=== PATIENT | female | born 1965 | race Caucasian/White ===

== ENCOUNTER → 2017-07-13 | Outpatient (CLI) | payer BC ==
[~2017-07-13] MED LIST: EFFEXOR-XR150 MG PO; FLEXERIL 1010 MG/TAB PO; NORCO 325 MG-51 TAB PO; REGLAN 10MG10 MG/TAB PO; TREXIMET; ZOFRAN 4MG T4 MG/TAB
== END ==
LOC: MC.RAD 15:43
DX: Z12.31 Encounter for screening mammogram for malignant neoplasm of breast (principal)

== ENCOUNTER 2018-03-16 23:51 | Emergency (ER) | payer BC ==
[~2018-03-16] VITALS: Ht 160 cm; Wt 62.7 kg
[2018-03-16 23:57] VITALS: TEMP 98
[2018-03-17 00:56] LABS: COLLECTION METHOD CLEAN CATCH
[2018-03-17 00:59] LABS: BASO # 0.1 (0.0-0.2); BASO % 0.9 % (0.0-2.0); EOS # 0.2 (0.0-0.7); EOS % 3.4 % (0-4.0); HEMATOCRIT 39.8 % (37.0-47.0); HEMOGLOBIN 14.3 g/dl (12.5-16.0); LYMPH # 1.8 (1.2-3.4); LYMPH % 31.1 % (20.0-51.0); MEAN CELL VOLUME 85 fl (80.0-100.0); MEAN CORPUSCULAR HEMOGLOBIN 31 pg (27.0-31.0); MEAN CORPUSCULAR HGB CONC 36 g/dl (33.0-37.0); MEAN PLATELET VOLUME 10.3 fl (7.4-10.4); MONO # 0.6 (0.1-0.6); MONO % 11.4 % (1.7-9.3); PLATELET COUNT 224 K/mm3 (130-400); RED BLOOD COUNT 4.69 M/mm3 (4.10-5.30); REDCELL DISTRIBUTION WIDTH-CV 11.9 % (11.5-14.5)
[2018-03-17 01:03] LABS: PH 7 (5-8); SQUAMOUS EPITHELIAL 0-2 /hpf; URINE APPEARANCE Cloudy; URINE BACTERIA Rare /hpf; URINE BILIRUBIN Negative (NEGATIVE); URINE BLOOD Negative (NEGATIVE); URINE GLUCOSE Negative (NEGATIVE); URINE KETONE Negative (NEGATIVE); URINE LEUKOCYTE ESTERASE Negative (NEGATIVE); URINE NITRATE Negative (NEGATIVE); URINE PROTEIN(semi-quant) Negative (NEGATIVE); URINE RBC 0-2 /hpf; URINE UROBILINOGEN Negative (NEGATIVE)
[2018-03-17 01:04] LABS: URINE COLOR Yellow
[2018-03-17] MEDS ORDERED: LEXAPRO20 MG PO (01:04)
[2018-03-17 01:11] LABS: ALANINE AMINOTRANSFERASE 32 U/L (9-52); ALBUMIN 4.2 gm/dL (3.5-5.0); ALKALINE PHOSPHATASE 71 U/L (50-136); ANION GAP 8 mmol/L (7-16); AST,SGOT 29 U/L (15-37); BILIRUBIN,TOTAL 0.3 mg/dL (0.0-1.0); BLOOD UREA NITROGEN 15 mg/dL (7-17); C-REACTIVE PROTEIN < 0.5 mg/dL (0.0-0.9); CALCIUM 9.8 mg/dL (8.4-10.2); CARBON DIOXIDE 29 mmol/L (22-30); CHLORIDE 102 mmol/L (98-107); CREATININE, serum 0.72 mg/dL (0.52-1.25); GLUCOSE 99 mg/dL (74-106); POTASSIUM 3.9 mmol/L (3.4-5.0); SODIUM 138 mmol/L (137-145); TOTAL PROTEIN 7.1 gm/dL (6.4-8.2)
[2018-03-17] MEDS ORDERED: CIPRO 500MG TA500 MG PO (03:29)
[2018-03-17] MEDS ORDERED: ZOFRAN 4MG T4 MG/TAB PO (03:29)
[2018-03-17] MEDS ORDERED: FLAGYL500 MG PO (03:29)
[2018-03-17] MEDS ORDERED: NORCO 325 MG-51 TAB PO (03:29)
[2018-03-17 03:46] VITALS: BP 99/61; PULSE 69
== END 2018-03-17 03:51 | disposition home or self-care (01) ==
LOC: COL.ER 23:51
PROVIDERS: Nurse Practitioner
DX: K52.9 Noninfective gastroenteritis and colitis, unspecified (principal); R11.0 Nausea; G43.909 Migraine, unspecified, not intractable, without status migrainosus; Z90.710 Acquired absence of both cervix and uterus; Z98.890 Other specified postprocedural states; Z90.49 Acquired absence of other specified parts of digestive tract
CPT/HCPCS: J1170; J2405; J7030; Q9967

== ENCOUNTER → 2019-05-18 | Outpatient (CLI) | payer BC ==
[~2019-05-18] MED LIST changes: +CIPRO 500MG TA500 MG PO; +FLAGYL500 MG PO; +LEXAPRO20 MG PO; +ZOFRAN 4MG T4 MG/TAB PO
== END ==
LOC: MC.RAD 11:06
DX: Z12.31 Encounter for screening mammogram for malignant neoplasm of breast (principal)

== ENCOUNTER 2019-08-22 10:34 | Day surgery (SDC) | payer BC ==
[~2019-08-22] VITALS: Ht 160 cm; Wt 60.9 kg
[2019-08-22 11:33] VITALS: BP 125/73; PULSE 66; TEMP 97.9
[2019-08-22] MEDS ORDERED: ZOFRAN 4MG T4 MG/TAB PO (11:36)
[2019-08-22] MEDS ORDERED: BRINTELLIX20 PO (11:37)
--- NOTE | 2019-08-22 11:38 | NUR ---
TO RM AT 1110- CALL LIGHT IN REACH AT BEDSIDE.
[2019-08-22] MEDS ORDERED: CANASA 1000MG1000 MG RC (13:34)
[2019-08-22] MEDS ORDERED: LIALDA 1.2 GM1.2 GM PO (13:35)
[2019-08-22] MEDS ORDERED: PREDNISONE10 MG PO (13:35)
[2019-08-22 13:40] VITALS: BP 111/63; PULSE 65; TEMP 98.4
--- NOTE | 2019-08-22 13:40 | NUR ---
Patient brought back to [facility] via cart. Ambulated to chair without difficulty. Alert and oriented. at bedside. Denies nausea or pain, just slightly dizzy. Crackers and water provided. Vitals stable, will continue to monitor.
[2019-08-22 13:55] VITALS: BP 113/71; PULSE 63
--- NOTE | 2019-08-22 13:55 | NUR ---
Dr. Colmenares at bedside to explain results with patient and family. Per MD obtain stool kit to send home with PT. Recieved from lab. Expained procedure of collecting stool. Pt states she is feeling well. Tolerating food and drink without difficulty. Will continue to monitor.
[2019-08-22 14:10] VITALS: BP 107/64; PULSE 62
--- NOTE | 2019-08-22 14:10 | NUR ---
Patient states she is feeling well and ready to go home. Vital signs stable.
--- NOTE | 2019-08-22 14:35 | NUR ---
Discharge instructions reviewed with patient and family. New perscriptions reviewed. All questions answered. Patient wheeled down to lobby. To be driven home by .
== END 2019-08-22 14:35 | disposition home or self-care (01) ==
LOC: SDCO 10:34
DX: K51.50 Left sided colitis without complications (principal)
CPT/HCPCS: J2704; J7120

== ENCOUNTER → 2020-04-05 | Outpatient (CLI) | payer BC ==
[~2020-04-05] MED LIST changes: +BRINTELLIX20 PO; +CANASA 1000MG1000 MG RC; +LIALDA 1.2 GM1.2 GM PO; +PREDNISONE10 MG PO
== END ==
LOC: MC.RAD 12:59
DX: Z12.31 Encounter for screening mammogram for malignant neoplasm of breast (principal)

== ENCOUNTER → 2021-02-07 | Outpatient (CLI) | payer BC | LOC: COL.RAD 07:24 | DX: K51.919 Ulcerative colitis, unspecified with unspecified complications (principal); Z90.49 Acquired absence of other specified parts of digestive tract | CPT/HCPCS: Q9967 ==

== ENCOUNTER → 2021-05-15 | Outpatient (CLI) | payer BC | LOC: COL.RAD 11:33 | DX: E04.2 Nontoxic multinodular goiter (principal) ==

== ENCOUNTER → 2021-06-02 | Outpatient (CLI) | payer BC | LOC: COL.RAD 12:00 | DX: E05.00 Thyrotoxicosis with diffuse goiter without thyrotoxic crisis or storm (principal); E04.2 Nontoxic multinodular goiter | CPT/HCPCS: A9516 ==

== ENCOUNTER → 2021-07-04 | Outpatient (CLI) | payer BC | LOC: MC.RAD 10:16 | DX: Z12.31 Encounter for screening mammogram for malignant neoplasm of breast (principal) ==

== ENCOUNTER 2021-09-28 10:05 | Emergency (ER) | payer BC ==
[~2021-09-28] VITALS: Ht 160 cm; Wt 61.4 kg
[2021-09-28 10:30] VITALS: TEMP 98.4
[2021-09-28 11:10] LABS: COLLECTION METHOD CLEAN CATCH
[2021-09-28 11:13] LABS: BASO % 0.5 % (0.0-2.0); EOS # 0.2 K/mm3 (0.0-0.7); EOS % 3.4 % (0.0-4.0); GRAN # 2.5 K/mm3 (1.4-6.5); GRAN % 44.8 % (42.2-75.2); HEMATOCRIT 40.8 % (37.0-47.0); HEMOGLOBIN 14.1 g/dl (12.5-16.0); LYMPH # 1.9 K/mm3 (1.2-3.4); LYMPH % 34.8 % (20.0-51.0); MEAN CELL VOLUME 88 fl (80.0-100.0); MEAN CORPUSCULAR HEMOGLOBIN 30 pg (27-31); MEAN CORPUSCULAR HGB CONC 35 g/dl (33.0-37.0); MEAN PLATELET VOLUME 9.7 fl (7.4-10.4); MONO # 0.9 K/mm3 (0.1-0.6); MONO % 16.3 % (1.7-9.3); PLATELET COUNT 249 K/mm3 (130-400); RED BLOOD COUNT 4.64 M/mm3 (4.10-5.30); REDCELL DISTRIBUTION WIDTH-CV 11.9 % (11.5-14.5)
[2021-09-28 11:19] LABS: PH 7 (5-8); SQUAMOUS EPITHELIAL None Seen /hpf (0-10); URINE APPEARANCE Clear (CLEAR/HAZY); URINE BACTERIA None Seen /hpf (NONE SEEN); URINE BILIRUBIN Negative (NEGATIVE); URINE BLOOD Negative (NEGATIVE); URINE COLOR Straw (YELLOW); URINE GLUCOSE Negative (NEGATIVE); URINE KETONE Negative (NEGATIVE); URINE LEUKOCYTE ESTERASE Negative (NEGATIVE); URINE NITRATE Negative (NEGATIVE); URINE PROTEIN(semi-quant) Negative (NEGATIVE); URINE RBC None Seen /hpf (0-2); URINE UROBILINOGEN Negative (NEGATIVE)
[2021-09-28 11:33] LABS: BILIRUBIN,TOTAL 0.6 mg/dL (0.2-1.2); CALCIUM 9.4 mg/dL (8.4-10.2); CREATININE, serum 0.79 mg/dL (0.57-1.11); POTASSIUM 4.1 mmol/L (3.5-4.5); TOTAL PROTEIN 7.2 gm/dL (6.2-8.1)
[2021-09-28 15:19] VITALS: BP 106/64; PULSE 77
== END 2021-09-28 15:19 | disposition home or self-care (01) ==
LOC: COL.ER 10:05
PROVIDERS: Family Medicine
DX: G97.1 Other reaction to spinal and lumbar puncture (principal); G43.909 Migraine, unspecified, not intractable, without status migrainosus; Z79.899 Other long term (current) drug therapy
CPT/HCPCS: J2405; J3010; J7120

== ENCOUNTER → 2021-10-24 | Outpatient (CLI) | payer BC | LOC: COL.RAD 06:58 | DX: S83.241A Other tear of medial meniscus, current injury, right knee, initial encounter (principal) ==

== ENCOUNTER 2022-03-05 13:06 | Outpatient (CLI) | payer BC ==
[~2022-03-05] VITALS: Ht 160 cm; Wt 62.2 kg
[2022-03-05 13:24] VITALS: BP 103/67; PULSE 70; TEMP 97.2
[2022-03-05] MEDS ORDERED: HUMIRA PEN40 MG/0.4 SQ (13:28)
[2022-03-05] MEDS ORDERED: CANASA 1000MG1000 MG RC (13:29)
[2022-03-05] MEDS ORDERED: MASON NATURAL2000 IU PO (13:30)
[2022-03-05 14:00] VITALS: BP 100/59; PULSE 68
[2022-03-05 14:15] VITALS: BP 105/68; PULSE 73
[2022-03-05 14:30] VITALS: BP 100/65; PULSE 67
[2022-03-05 14:45] VITALS: BP 103/69; PULSE 64
[2022-03-05 15:00] VITALS: BP 111/61; PULSE 68
--- NOTE | 2022-03-05 15:05 | NUR ---
Pt tolerated BEB infusion and 1 hr monitoring period with no issues or signs of reaction. IV DC'd. Pt escorted out to ED entrance with steady gait.
== END 2022-03-05 15:01 | disposition home or self-care (01) ==
LOC: EUO 13:06
DX: U07.1 COVID-19 (principal)
CPT/HCPCS: M0222; Q0222

== ENCOUNTER → 2023-06-04 | Outpatient (CLI) | payer BC ==
[~2023-06-04] MED LIST changes: +DIAZEPAM RC; +HUMIRA PEN40 MG/0.4 SQ; +MASON NATURAL2000 IU PO; +Patient's Own Medica PO; +Patient's Own Medica RC; +RINVOQ30 MG PO
== END ==
LOC: COL.RAD 12:10
DX: E04.2 Nontoxic multinodular goiter (principal)

== ENCOUNTER → 2023-12-31 | Outpatient (CLI) | payer BC | LOC: MC.RAD 09:30 | DX: Z12.31 Encounter for screening mammogram for malignant neoplasm of breast (principal) ==